=== PATIENT | male | born 1995 | race Two or more races ===

== ENCOUNTER 2025-02-08 15:56 | Emergency (ER) | payer OTHER ==
[~2025-02-08] VITALS: Ht 182.9 cm; Wt 99.8 kg
[2025-02-08] MEDS ORDERED: KETOROLAC TROMETHAMINE 15 MG/ML VIAL ONE (16:41)
[2025-02-08] MEDS ORDERED: ACETAMINOPHEN 325 MG TABLET ONE (16:42)
[2025-02-08] MEDS: KETOROLAC TROMETHAMINE 15 MG/ML VIAL IM ONE (16:50)
[2025-02-08] MEDS: ACETAMINOPHEN 325 MG TABLET PO ONE (16:51)
[2025-02-08] MEDS: TDAP [DIPH/PERTUSSIS/TET] 0.5 ML VIAL IM ONE (16:51)
[2025-02-09 05:09] VITALS: BP 136/73; TEMP 98.1; O2SAT 97
== END 2025-02-09 05:10 | disposition home or self-care (01) ==
LOC: ER 16:23
DX: S63.074A Dislocation of distal end of right ulna, initial encounter (principal); S63.104A Unspecified dislocation of right thumb, initial encounter; M25.511 Pain in right shoulder; M25.512 Pain in left shoulder; M25.521 Pain in right elbow; M25.522 Pain in left elbow; M25.531 Pain in right wrist; M25.532 Pain in left wrist; M79.641 Pain in right hand; M79.642 Pain in left hand; X58.XXXA Exposure to other specified factors, initial encounter; Y93.89 Activity, other specified; Y92.89 Other specified places as the place of occurrence of the external cause; Y99.8 Other external cause status
CPT/HCPCS: 24620; 26775; 71045; 73030; 73070; 73130; 90471; 90715; 96372; 99285; J1885